=== PATIENT | male | born 1940 ===

== ENCOUNTER 2017-06-13 10:14 | Emergency (ER) | payer MEDICARE, BC ==
[2017-06-13] MEDS ORDERED: HYDROcodone/ACETAMIN 5-325 MG* 1 TAB PO ONE (11:57)
[2017-06-13] MEDS ORDERED: Ondansetron ODT TAB* 4 MG PO ONE (11:58)
--- NOTE | 2017-06-13 12:16 | ED ---
GI/ HPI - HPI Summary HPI Summary: 77 yr old male with the complaint of left lower flank pain, urgency and pressure to urinate. Onset of symptoms 3 am. He states his pain was 8/10, hard to find comfortable place. He states he has had associated nausea with the pain, and emesis. He denies actual fever. He has had a prostatectomy for BPH in the past. he has had renal stones. Denies abdominal pain. - History of Current Complaint Chief Complaint: [facility] Time Seen by Provider: 06/13/17 11:43 Stated Complaint: CHILLS, VOMITING, TROUBLE URINATING Pain Intensity: 4 - Allergy/Home Medications Allergies/Adverse Reactions: Allergies Allergy/AdvReac Type Severity Reaction Status Date / Time No Known Allergies Allergy Verified 01/11/12 18:40 Home Medications: Home Medications Naproxen Sodium [Naproxen 220 mg] 220 mg PO ONCE 06/13/17 [History Confirmed ] PMH/Surg Hx/FS Hx/Imm Hx - Surgical History Surgery Procedure, Year, and Place: Bilateral Cataract Extractions, 04/2017, [facility]; Facial Benign Lipoma, 03/2017, [facility]; TURP for BPH, 2010, [facility]; Bilateral Inguinal Herniorrhaphies, [place] Infectious Disease History: No Infectious Disease History: Denies: Traveled Outside the [place] in Last 30 Days - Family History Known Family History: Positive: None - Social History Occupation: Retired Lives: With Family Alcohol Use: one beer with dinner Substance Use Type: Reports: None Smoking Status (MU): Former Smoker Type: Cigarettes Have You Smoked in the Last Year: No Review of Systems Positive: Vomiting, Nausea Positive: flank pain All Other Systems Reviewed And Are Negative: Yes Physical Exam Vital Signs On Initial Exam: Initial Vitals Temp Pulse Resp BP Pulse Ox 98.5 F 96 16 146/118 97 06/13/17 11:28 06/13/17 11:28 06/13/17 11:28 06/13/17 11:28 06/13/17 11:28 Diagnostics - Vital Signs Vital Signs Temp Pulse Resp BP Pulse Ox 06/13/17 11:28 98.5 F 96 16 146/118 97 - Laboratory Lab Results: Lab Results 06/13/17 Range/Units 11:47 POC Urine Color Yellow POC Urine Clarity Clear POC Urine pH 6.0 (5-9) POC Ur Specif [place] 1.020 (1.010-1.030) POC Urine Protein 1+ A (Negative) POC Ur Glucose (UA) Negative (Negative) POC Urine Ketones 4+ A (Negative) POC Urine Blood Trace-intact A (Negative) POC Urine Nitrite Negative (Negative) POC Urine Bilirubin 1+ A (Negative) POC Urine Urobilinogen 1.0 (Negative) POC U Leukocyte Esteras Negative (Negative) Lab Statement: Any lab studies that have been ordered have been reviewed, and results considered in the medical decision making process. - CT abd/pelv CT Interpretation: Positive (See Comments) - renal stone CT Interpretation Completed By: Radiologist Re-Evaluation - Re-Evaluation First Eval Re-Evaluation Time: 12:54 Change: Improved Comment: The patient reports almost total relief of pain, he does not want any scripts for pain or nausea. GIGU Course/Dx - Course Course Of Treatment: 77 yr old male with back pain. CT scan ordered. - Diagnoses Provider Diagnoses: Renal colic on left side Discharge - Sign-Out/Discharge Documenting (check all that apply): Discharge/Admit/Transfer - Discharge Plan Condition: Good Disposition: HOME Patient Education Materials: Renal Colic (ED), Kidney Stones (ED), Hypertension (ED) Referrals: Paresh Fermin MD [Primary Care Provider] - 2 Days Cici Xavier MD [Medical Doctor] - 2 Days Additional Instructions: you need to followup with Urology early next week. You had Dr Ott before for your prostate and [facility] has taken over that practice. - Billing Disposition and Condition Condition: GOOD Disposition: HOME
--- NOTE | 2017-06-13 12:39 | RAD ---
INDICATION: LEFT flank pain. History of urolithiasis. COMPARISON: No relevant prior exams available on the [facility] for comparison. TECHNIQUE: Multidetector CT images were obtained from the lung bases to the ischial tuberosities. Evaluation of the viscera is limited without IV contrast. Multiplanar reformation. REPORT: Approximate 6 well-circumscribed water density hepatic lesions most consistent with benign cysts are identified with assistance representative dominant 1.5 cm lesion at the LEFT lateral hepatic segment and 1.5 cm lesion at the RIGHT posterior hepatic segment. No CT abnormality of the gallbladder, pancreas, spleen. Negative for CT abnormality of the upper GI, small bowel, or diminutive appendix. Moderate diverticulosis of the colon primarily at the sigmoid colon without acute inflammatory change. Negative for ascites or free air. Nondilated normal-appearing small bowel loops extend into the proximal segment of a fat-containing direct appearing RIGHT inguinal hernia without evidence for obstruction or inflammation. Normal adrenal glands. Small parapelvic cyst at the RIGHT kidney. Mild LEFT hydronephrosis is traced to a 2.5 mm stone at the ureterovesicular junction. Associated mild perinephric and periureteral inflammatory stranding. Largely decompressed urinary bladder. Symmetric seminal vesicles. Negative for lymphadenopathy. Normal diameter abdominal aorta and iliac arteries. Physiologic partial distention of the IVC. Negative for suspicious focal osseous lesions. IMPRESSION: Mild LEFT hydronephrosis is traced to a 2.5 mm stone at the ureterovesicular junction. Associated mild perinephric and periureteral inflammatory stranding.
[2017-06-13 12:56] VITALS: BP 150/74
== END 2017-06-13 13:07 | disposition home or self-care (01) ==
LOC: UCCORT 10:14
DX: N13.2 Hydronephrosis with renal and ureteral calculous obstruction (principal); Z90.79 Acquired absence of other genital organ(s); Z87.891 Personal history of nicotine dependence
CPT/HCPCS: 74176; 81003; 87086; 99212; A9270-GY; G0463